=== PATIENT | female | born 1960 | race Caucasian/White ===

== ENCOUNTER 2022-05-03 11:23 | Emergency (ER) | payer OTHER, SELFPAY ==
[2022-05-03 11:35] VITALS: BP 101/65; PULSE 76; RESP 20; TEMP 36.7; O2SAT 99
--- NOTE | 2022-05-03 12:24 | ED.URI ---
HPI - URI/Sore Throat General Chief Complaint: Upper Respiratory Infection Stated Complaint: sore throat ringing in ears Time Seen by Provider: 05/03/22 12:14 History of Present Illness HPI Narrative: 61 year old female who presents to [facility] care with complaints of sore throat since yesterday and ringing in her ears for the past 2 months. Patient reports that she was treated for an ear infection in her left ear a few weeks ago and it did seem to improve. She has an appointment with an ENT at the end of May. She reports that she has history of hearing loss to her left ear. Patient reports that she have some nasal drainage has history of seasonal allergies. Patient report that throat is painful to swallow rates her pain as 8/10, is taking daily Zyrtec and using nasal spray of Flonase. MD elicited complaint: sore throat and other (ringing in ears) Pertinent past history: seasonal allergies and other (tobacco use) Pain scale (0-10): 8 Treatments prior to arrival: other (zyrtec and flonase) Related Data Home Medications Medication Instructions Recorded Confirmed aspirin 81 mg chewable tablet 81 mg PO DAILY 05/03/22 05/03/22 atorvastatin 40 mg tablet 40 tablet PO DAILY 05/03/22 05/03/22 cetirizine 10 mg tablet 10 tablet PO DAILY 05/03/22 05/03/22 fluticasone propionate 50 See Rx Instructions .Route .COMPLEX 05/03/22 05/03/22 mcg/actuation nasal spray,suspension Allergies Allergy/AdvReac Type Severity Reaction Status Date / Time Penicillins Allergy Unknown Verified 05/03/22 12:27 Review of Systems Review of Systems: CONSTITUTIONAL: Denies fever, chills, or sweats. EYES: Denies visual changes, redness, or discharge. ENT: Positive rhinorrhea, congestion, sore throat, ringing in ears CARDIOVASCULAR: Denies chest pain, palpitations, or edema. RESPIRATORY: Denies cough or dyspnea. GASTROINTESTINAL: Denies abdominal pain, nausea, vomiting, or diarrhea. GENITOURINARY: Denies dysuria or hematuria. SKIN: Denies rash or itching. MUSCULOSKELETAL: Denies back pain, joint pain, or myalgia. NEUROLOGIC: Denies headache, numbness, or weakness. PSYCHIATRIC: Denies anxiety or depression. All systems reviewed & are unremarkable except as noted in HPI and below PMFSH Past Medical History Medical History (Updated 05/06/22 @ 07:29 by Faye Sarah NP) Elevated cholesterol Seasonal allergies Social History Social History (Updated 05/06/22 @ 07:30 by Faye Sarah NP) Smoking packs per day: 1 Smoking cigarettes per day: 20.0 Years smoked: 45 Smoking pack-years: 45.00 Smoking status: Current every day smoker Tobacco type: cigarettes Alcohol intake: current Alcohol use details: social Substance use type: does not use Living arrangements: with family Gender identity (if verbalized by the patient): Female Comments At time of signature, agree with nursing past medical, surgical, social and family history. There is no relevant family history pertinent to the presenting complaint Exam Narrative: GENERAL: Well-appearing, well-nourished, and in no acute distress. HEAD: Normocephalic, atraumatic. EYES: PERRLA and EOMI. ENT: Nares with red membranes with clear nasal rhinorrhea no epistaxis. Mucous membranes moist.TM's dull in appearance with no bulging noted, throat red no lesions or exudates, tonsils enlarged and red. NECK: Supple.no lymphadenopathy, CHEST: Clear to auscultation. No respiratory distress.dry cough noted SAO2 99% on room air HEART: Regular rate and rhythm. No murmur heard. Normal peripheral pulses. ABDOMEN: Soft, nontender, nondistended, normal active bowel sounds. EXTREMITIES: Normal range of motion. No edema. SKIN: Warm, dry, no rash. NEURO: No focal deficits. Alert and oriented x3. Course Course Level of Care: Express Care Visit Vital Signs Vital signs: Vital Signs Temperature 36.7 C 05/03/22 11:35 Pulse Rate 76 05/03/22 11:35 Respiratory Rate 20 05/03/22 11:35 Blo
== END 2022-05-03 12:35 | disposition home or self-care (01) ==
PROVIDERS: Emergency Provider Registered Nurse; PCP Hospitalist
DX: J06.9 Acute upper respiratory infection, unspecified (principal); J02.9 Acute pharyngitis, unspecified; Z79.82 Long term (current) use of aspirin
CPT/HCPCS: 87081; 87880; 99213; G0463